=== PATIENT | male | born 1955 | race Caucasian/White ===

== ENCOUNTER 2017-04-29 02:48 | Emergency (ER) | payer OTHER, SELFPAY ==
--- NOTE | 2017-04-29 | CT_ITS ---
CT head/brain wo con HISTORY: Weakness, left-sided facial drooping, bilateral leg weakness ORDERING PHYSICIAN: Michael Cuevas MD PATIENT AGE: 61 years COMPARISON: None. FINDINGS: There is mild prominence of the ventricles and sulci consistent with volume loss. Low density changes are present in the periventricular region consistent with ischemic gliotic change from small vessel disease. There is encephalomalacia change in the right parieto-occipital region consistent with an area of old infarction. No midline shift, mass effect, intracranial hemorrhage, or hydrocephalus is evident. No mastoid effusion. No acute calvarial abnormality. There is some prominence of the subcutaneous fat in the left vertex. This could be due to positioning or due to a lipoma. There is mild mucosal thickening of the ethmoid sinuses and a small air-fluid level in the right maxillary sinus. IMPRESSION: 1. Atrophy with chronic ischemic changes. 2. No acute intracranial process apparent. 3. Sinus disease. 4. There is no evidence of intracranial hemorrhage, focal mass, or acute territorial infarction. A negative CT does not exclude an acute CVA. A follow-up head CT or MRI is recommended if neurological symptoms persist
[2017-04-29 02:54] VITALS: BP 139/75; PULSE 116; RESP 22; TEMP 37.5; O2SAT 93; BMI 38.4
--- NOTE | 2017-04-29 03:04 | [facility].EDNEU ---
ED Disposition Clinical Impression: Elevated troponin, Renal insufficiency Cerebrovascular accident Qualifiers: CVA mechanism: unspecified Qualified Code(s): I63.9 - Cerebral infarction, unspecified Rhabdomyolysis Qualifiers: Rhabdomyolysis type: non-traumatic Qualified Code(s): M62.82 - Rhabdomyolysis Disposition: Xfer Short-Term Hosp Condition on Discharge: Serious Referrals: Provider,Referral, [Primary Care Provider] - Forms: Transfer Record - ED - Critical Care Critical Care Time: Yes Attestation: On 04/29/17, the high probability of a clinically significant, sudden or life threatening deterioration of the following system(s) required my full and direct attention, intervention and personal management. The time I documented below is in addition to time spent performing reported procedures but includes the following listed in this critical care notation. Vital system(s) involved:: Central Nervous System My critical care processes included: Assessment & monitoring of V/S, Initial and Re-exams, Medication Orders and management, Documentation Medical Decision Making - Medical Records Medical records reviewed: Yes: I reviewed the patient's medical records. Vital Signs: 04/29/17 02:54 Temperature 99.5 F Temperature Source Oral Pulse Rate [Right Brachial] 116 H Respiratory Rate 22 Blood Pressure [Right Arm] 139/75 Blood Pressure Mean [Right Arm] 96 Blood Pressure Source [Right Arm] Automatic Cuff Blood Pressure Position [Right Arm] Supine 02 Sat by Pulse Oximetry 93 L Oxygen Delivery Method Room Air - Lab Data Lab results reviewed: Yes: I reviewed the patient's lab results. Lab Results 04/29/17 02:51: WBC 13.4 H, RBC 5.77, Hct 59.1 H, MCV 102.3 H, MCH 33.7 H, MCHC 32.9, RDW 14.3, Plt Count 235, MPV 7.2 L, Neut % (Auto) 77.1, Lymph % (Auto) 7.8 L, [place] % (Auto) 12.0 H, Eos % (Auto) 0.3, Baso % (Auto) 0.7, Neut # (Auto) 10.3 H, Lymph # (Auto) 1.0, [place] # (Auto) 1.6 H, Eos # (Auto) 0.0, Baso # (Auto) 0.1 04/29/17 02:51: Sodium 137, Potassium 3.4 L, Chloride 101, Carbon Dioxide 22, Anion Gap 17.4 H, BUN 28 H, Creatinine 2.53 H, Estimated Creat Clear 42, Estimated GFR 26 L, Est GFR ( Amer) 32 L, Glucose 112 H 04/29/17 03:06: POC Glucose 114 Result diagrams: 04/29/17 02:51 04/29/17 02:51 Orders (Tests/Meds): ED MEDICATIONS Generic Name Dose Route Start Last Admin Trade Name Freq PRN Reason Stop Dose Admin Sodium Chloride 10 ml 04/29/17 03:09 Saline Flush 10ml Syringe IV 05/29/17 03:08 NEEDED PRN Maintain IV Site ORDERS Category Date Time Status CT head/brain wo con Stat Cat Scan 04/29/17 Taken Complete Blood Count Auto Diff Stat Lab 04/29/17 02:51 Results POC Glucose,Bedside Stat Lab 04/29/17 03:10 Ordered Urinalysis-Acute [Urinalysis and Microscopic] Stat Lab 04/29/17 03:09 Ordered - CT Data ED CT Reviewed: Yes: I discussed the CT results w/the radiologist Preliminary Findings: Normal/NAD - ECG Data Tracing #1 I reviewed this ECG and interpreted as documented below: Arrhythmias present: wandering atrial pacemaker Ischemic changes: non-specific ST-T wave changes, poor r wave progression - Physician Consults Physician Consulted: john paul Time: 03:43 Reason -: Transfer to another facilty - Jeff Inquiry Pt receiving controlled substance: No Neuro HPI - General Stated Complaint: left facial droop Time Seen by Provider: 04/29/17 03:04 Mode of Arrival: EMS Source of Information: Patient, EMS, Medical Record Limitations: No Limitations - History of Present Illness HPI Narrative: pt with weakness progressive over the last few hrs with dec use of lower ext and feels weaker on lt lower ext - he has weakness lt upper ext over the last 2 hrs and no speech and visual loss - hx of tob use and prev cardiac disease - no fever or trauma Onset (ago): hour(s) Date last observed normal: 04/29/17 Time last observed normal: 01:00 Ti
--- NOTE | 2017-04-29 03:07 | ED_ITS ---
ED Disposition Clinical Impression: Elevated troponin, Renal insufficiency Cerebrovascular accident Qualifiers: CVA mechanism: unspecified Qualified Code(s): I63.9 - Cerebral infarction, unspecified Rhabdomyolysis Qualifiers: Rhabdomyolysis type: non-traumatic Qualified Code(s): M62.82 - Rhabdomyolysis Disposition: Xfer Short-Term Hosp Condition on Discharge: Serious Referrals: Provider,Referral, [Primary Care Provider] - Forms: Transfer Record - ED - Critical Care Critical Care Time: Yes Attestation: On 04/29/17, the high probability of a clinically significant, sudden or life threatening deterioration of the following system(s) required my full and direct attention, intervention and personal management. The time I documented below is in addition to time spent performing reported procedures but includes the following listed in this critical care notation. Vital system(s) involved:: Central Nervous System My critical care processes included: Assessment & monitoring of V/S, Initial and Re-exams, Medication Orders and management, Documentation Medical Decision Making - Medical Records Medical records reviewed: Yes: I reviewed the patient's medical records. Vital Signs: 04/29/17 02:54 Temperature 99.5 F Temperature Source Oral Pulse Rate [Right Brachial] 116 H Respiratory Rate 22 Blood Pressure [Right Arm] 139/75 Blood Pressure Mean [Right Arm] 96 Blood Pressure Source [Right Arm] Automatic Cuff Blood Pressure Position [Right Arm] Supine 02 Sat by Pulse Oximetry 93 L Oxygen Delivery Method Room Air - Lab Data Lab results reviewed: Yes: I reviewed the patient's lab results. Lab Results 04/29/17 02:51: WBC 13.4 H, RBC 5.77, Hct 59.1 H, MCV 102.3 H, MCH 33.7 H, MCHC 32.9, RDW 14.3, Plt Count 235, MPV 7.2 L, Neut % (Auto) 77.1, Lymph % (Auto) 7.8 L, [place] % (Auto) 12.0 H, Eos % (Auto) 0.3, Baso % (Auto) 0.7, Neut # (Auto) 10.3 H, Lymph # (Auto) 1.0, [place] # (Auto) 1.6 H, Eos # (Auto) 0.0, Baso # (Auto ) 0.1 04/29/17 02:51: Sodium 137, Potassium 3.4 L, Chloride 101, Carbon Dioxide 22, Anion Gap 17.4 H, BUN 28 H, Creatinine 2.53 H, Estimated Creat Clear 42, Estimated GFR 26 L, Est GFR ( Amer) 32 L, Glucose 112 H 04/29/17 03:06: POC Glucose 114 Result diagrams: 04/29/17 02:51 04/29/17 02:51 Orders (Tests/Meds): ED MEDICATIONS Generic Name Dose Route Start Last Admin Trade Name Freq PRN Reason Stop Dose Admin Sodium Chloride 10 ml 04/29/17 03:09 Saline Flush 10ml Syringe IV 05/29/17 03:08 NEEDED PRN Maintain IV Site ORDERS Category Date Time Status CT head/brain wo con Stat Cat Scan 04/29/17 Taken Complete Blood Count Auto Diff Stat Lab 04/29/17 02:51 Results POC Glucose,Bedside Stat Lab 04/29/17 03:10 Ordered Urinalysis-Acute [Urinalysis and Microscopic] Stat Lab 04/29/17 03:09 Ordered - CT Data ED CT Reviewed: Yes: I discussed the CT results w/the radiologist Preliminary Findings: Normal/NAD - ECG Data Tracing #1 I reviewed this ECG and interpreted as documented below: Arrhythmias present: wandering atrial pacemaker Ischemic changes: non-specific ST-T wave changes, poor r wave progression - Physician Consults Physician Consulted: john paul Time: 03:43 Reason -: Transfer to another facilty - Jeff Inquiry Pt receiving cont
--- NOTE | 2017-04-29 03:13 | PC.NURSE ---
patient to ct per ems stretcher at [id number]
[2017-04-29 03:15] LABS: POC Glucose,Bedside 114 mg/dL
[2017-04-29 03:16] LABS: Hematocrit 59.1 % (42.0-52.0); Mean Corpuscular HGB Conc 32.9 g/dL (31.8-35.4); Mean Corpuscular Hemoglobin 33.7 pg (27.0-31.2); Mean Corpuscular Volume 102.3 fl (80-94); Red Blood Count 5.77 M/mm3 (4.60-6.20); White Blood Count 13.4 K/mm3 (4.8-10.8)
[2017-04-29 03:17] LABS: Basophils # 0.1 K/mm3 (0-0.2); Basophils % 0.7 % (0.1-2.0); Eosinophils % 0.3 % (0.1-12.0); Lymphocytes % 7.8 K/mm3 (10-50); Mean Platelet Volume 7.2 fl (7.4-10.4); Monocytes # 1.6 K/mm3 (0.1-1.0); Neutrophils # 10.3 K/mm3 (1.8-7.8); Neutrophils % 77.1 % (37.0-80.0); Platelet Count 235 K/mm3 (142-424); Red Cell Distribution Width 14.3 % (11.5-17.5)
[2017-04-29 03:21] LABS: Anion Gap 17.4 mEq/L (5-15); Blood Urea Nitrogen 28 mg/dL (7-18); Carbon Dioxide 22 mmol/L (21.0-32.0); Chloride 101 mmol/L (98-107); Creatinine Clearance Estimated 42 mg/ml (0-300); Creatinine,Serum 2.53 mg/dL (0.70-1.30); Estimated Glomerular Filt Rate 26 ml/min (>60); GFR (African American) 32 ML/MIN (>60); Potassium 3.4 mmoL/L (3.5-5.1); Sodium 137 mmol/L (136-145)
[2017-04-29 03:22] LABS: Glucose 112 mg/dL (74-106)
--- NOTE | 2017-04-29 03:22 | PC.NURSE ---
fsbg 114
--- NOTE | 2017-04-29 03:25 | PC.NURSE ---
[facility] [address] [id number], 2018-11-24
[2017-04-29 03:31] LABS: Blood, Urine 3+ (Negative); Glucose,Urine (UA) Negative (Negative); Ketones,Urine TRACE (Negative); Leukocyte Esterase,Urine TRACE (Negative); Microscopic, Urine URINE MICROSCOPIC (MICROSCOPIC); Nitrate,Urine POSITIVE (Negative); PH,Urine 6.5 (5.0-8.5); Protein,Urine 3+ (Negative); Specific Gravity, Urine 1.025 (1.005-1.030)
--- NOTE | 2017-04-29 03:33 | PC.NURSE ---
speaking with dr. garcia. informed dr. biggs of troponin and ckmb
[2017-04-29 03:40] LABS: Bilirubin,Urine Negative (Negative)
[2017-04-29 03:41] LABS: Appearance,Urine Turbid (Clear); Color,Urine Amber (Yellow)
[2017-04-29 03:55] LABS: Amorphous Sediment,Urine 3+ /lpf; Bacteria,Urine 1+ /lpf
[2017-04-29 04:31] LABS: Hemoglobin 19.2 g/dL (14.1-18.0)
== END 2017-04-29 03:49 | disposition short-term general hospital (02) ==
PROVIDERS: Emergency Provider Emergency Medicine
DX: I69.392 Facial weakness following cerebral infarction (principal); M62.82 Rhabdomyolysis; R74.8 Abnormal levels of other serum enzymes; N28.9 Disorder of kidney and ureter, unspecified; R29.703 NIHSS score 3
CPT/HCPCS: 70450; 80048; 81001; 82962; 85025; 93005; 99283; 99284

== ENCOUNTER → 2017-06-12 08:00 | Outpatient (CLI) | payer OTHER, SELFPAY ==
[2017-06-15 12:22] LABS: Occult Blood,Stool Negative (Negative)
== END ==
PROVIDERS: Visit Provider Emergency Medicine
DX: Z12.11 Encounter for screening for malignant neoplasm of colon (principal)
CPT/HCPCS: 82272; G0328

== ENCOUNTER → 2017-06-13 08:00 | Outpatient (CLI) | payer OTHER, SELFPAY ==
[2017-06-15 12:23] LABS: Occult Blood,Stool Negative (Negative)
== END ==
PROVIDERS: Visit Provider Emergency Medicine
DX: Z12.11 Encounter for screening for malignant neoplasm of colon (principal)
CPT/HCPCS: 82272; G0328

== ENCOUNTER → 2017-06-14 08:00 | Outpatient (CLI) | payer OTHER, SELFPAY ==
[2017-06-15 12:23] LABS: Occult Blood,Stool Negative (Negative)
== END ==
PROVIDERS: PCP Emergency Medicine; Visit Provider Emergency Medicine
DX: Z12.11 Encounter for screening for malignant neoplasm of colon (principal)
CPT/HCPCS: 82272; G0328

== ENCOUNTER → 2017-07-28 09:53 | Outpatient (POV) | payer OTHER, SELFPAY | PROVIDERS: Family Provider Nurse Practitioner Family; PCP Emergency Medicine; Visit Provider Internal Medicine | DX: Z00.00 Encounter for general adult medical examination without abnormal findings (principal) ==

== ENCOUNTER → 2017-09-04 09:58 | Outpatient (CLI) | payer OTHER, SELFPAY ==
--- NOTE | 2017-09-04 10:16 | XR_ITS ---
XR chest 2V HISTORY: Chest pain following injury ITS.REASON: fall ORDERING PHYSICIAN: Florina Diaz PATIENT AGE: 62 years COMPARISON: 10/16/2016 FINDINGS: There is mild cardiomegaly without failure. No lobar consolidation or collapse. There is severe thoracic kyphoscoliosis as seen on prior chest CT of 11/03/2016. IMPRESSION: Cardiomegaly, no acute finding.
[2017-09-04 10:38] LABS: Basophils % 0.6 % (0.1-2.0); Eosinophils # 0.1 K/mm3 (0.0-0.4); Eosinophils % 1.8 % (0.1-12.0); Hemoglobin 17.5 g/dL (14.1-18.0); Lymphocytes # 1.4 K/mm3 (0.7-4.5); Lymphocytes % 19.5 K/mm3 (10-50); Mean Corpuscular HGB Conc 33.6 g/dL (31.8-35.4); Mean Corpuscular Hemoglobin 33.6 pg (27.0-31.2); Mean Platelet Volume 7.4 fl (7.4-10.4); Monocytes # 0.5 K/mm3 (0.1-1.0); Monocytes % 6.7 % (1.7-9.3); Neutrophils # 5.1 K/mm3 (1.8-7.8); Neutrophils % 71.4 % (37.0-80.0); Platelet Count 238 K/mm3 (142-424); Red Blood Count 5.19 M/mm3 (4.60-6.20); Red Cell Distribution Width 13.5 % (11.5-17.5); White Blood Count 7.1 K/mm3 (4.8-10.8)
[2017-09-04 11:48] LABS: Alanine Aminotransferase 26 U/L (12-78); Albumin Level 3.6 gm/dL (3.4-5.0); Alkaline Phosphatase 95 U/L (46-116); Anion Gap 13.3 mEq/L (5-15); Aspartate Amino Transferase 20 U/L (15-37); Bilirubin,Total 0.7 mg/dL (0.2-1.0); Blood Urea Nitrogen 15 mg/dL (7-18); Calcium 9.2 mg/dL (8.5-10.1); Carbon Dioxide 26 mmol/L (21.0-32.0); Chloride 107 mmol/L (98-107); Chol/HDL Ratio 6.7 (1-3.5); Cholesterol 235 mg/dL (140-200); Creatinine,Serum 1.08 mg/dL (0.70-1.30); Estimated Glomerular Filt Rate 70 ml/min (>60); GFR (African American) 84 ML/MIN (>60); Globulin 3.6 gm/dl (1.3-3.2); Glucose 100 mg/dL (74-106); HDL Cholesterol 35 mg/dL (27-67); LDL Cholesterol 161 mg/dL (0-130); Potassium 4.3 mmoL/L (3.5-5.1); Sodium 142 mmol/L (136-145); T4 (Thyroxine) 9.9 ug/dl (4.7-13.3); Total Protein,Serum 7.2 gm/dL (6.4-8.2); Triglycerides 194 mg/dL (30-200); VLDL Cholesterol 39 mg/dL (0-40)
[2017-09-06 06:29] LABS: Vitamin D 25 Hydroxy 12.3 ng/mL (30.0-100.0)
[2017-09-07 12:09] LABS: Occult Blood,Stool Negative (Negative)
== END ==
PROVIDERS: Visit Provider Nurse Practitioner Family
DX: R53.83 Other fatigue (principal)
CPT/HCPCS: 36415; 71046; 80053; 80061; 82272; 82652; 84436; 84443; 85025; G0328

== ENCOUNTER → 2017-09-07 08:11 | Outpatient (CLI) | payer OTHER, SELFPAY | PROVIDERS: Visit Provider Nurse Practitioner Family | DX: Z12.11 Encounter for screening for malignant neoplasm of colon (principal) ==